=== PATIENT | male | born 1980 | race Caucasian/White ===

== ENCOUNTER → 2016-12-27 | Outpatient (CLI) | payer OTHER ==
[~2016-12-27] MED LIST: DOXYCYCLINE 10100 MG PO; NORCO 325 MG-51 TAB PO
== END ==
LOC: COL.RAD 12-15 10:30
DX: M84.375A Stress fracture, left foot, initial encounter for fracture (principal); M72.2 Plantar fascial fibromatosis; S96.812A Strain of other specified muscles and tendons at ankle and foot level, left foot, initial encounter